=== PATIENT | male | born 1985 | race Two or more races ===

== ENCOUNTER → 2024-09-17 | Outpatient (CLI) | payer MEDICAID, SELFPAY ==
--- NOTE | 2024-09-17 08:45 | XR_ITS ---
Examination: Diagnostic digital mammography, bilateral Computer aided detection 3-D breast Tomosynthesis, bilateral Date and time of exam: September 17, 2024 0853 hours INDICATIONS: Palpable lumps in the right breast 7:00 position 6 months and left breast 3:00 position 2 months Technique: Nonmagnified MLO, CC views of the breasts to been obtained, reconstructed from 3-D Tomosynthesis images. R2 computer aided detection program utilized for evaluation of suspicious masses and/or abnormal calcifications. 3-D Tomosynthesis images obtained. Findings: The breasts are heterogeneously dense, which may obscure small masses Benign calcifications No definite suspicious masses noted Impression: BI-RADS Category 0: Incomplete: Need additional imaging evaluation Given the patient's presentation recommend bilateral breast sonography follow-up.
== END | disposition home or self-care (01) ==
PROVIDERS: Referring Provider Internal Medicine Nephrology; Visit Provider Internal Medicine Nephrology
DX: R92.8 Other abnormal and inconclusive findings on diagnostic imaging of breast (principal)
CPT/HCPCS: 77062; 77066; G0279

== ENCOUNTER → 2024-09-26 | Outpatient (CLI) | payer MEDICAID, SELFPAY ==
--- NOTE | 2024-09-26 14:09 | XR_ITS ---
Examination: Breast ultrasound complete, bilateral Date and time of exam: August 27, 2024 1424 hours INDICATIONS: History right breast nodule 7:00 position left breast nodule 3:00 position Technique: Real-time grayscale ultrasonographic imaging bilateral breasts, including all 4 quadrants as well as nipple retroareolar and axillary regions. Findings: Sonographic images right breast 9:00 retroareolar probable glandular tissue 7.5 x 1.9 x 5.8 cm Sonographic images left breast 3:00 retroareolar probable glandular tissue 7.9 x 1.6 x 5.9 cm IMPRESSION: BI-RADS Category 3: Probably benign findings Recommend this patient return for 3 month follow-up bilateral breast sonography
== END | disposition home or self-care (01) ==
PROVIDERS: PCP Internal Medicine Nephrology; Referring Provider Internal Medicine Nephrology; Visit Provider Internal Medicine Nephrology
DX: N61.23 Granulomatous mastitis, bilateral breast (principal)
CPT/HCPCS: 76641

== ENCOUNTER → 2024-10-24 | Outpatient (CLI) | payer MEDICAID, SELFPAY ==
--- NOTE | 2024-10-24 10:45 | XR_ITS ---
Examination: PA lateral chest 2 views TECHNIQUE: Upright PA lateral chest 2 views Exam date and time: October 24, 2024 1118 hours Comparison June 07, 2018 INDICATIONS: Status post port placement 3 days ago. FINDINGS: Normal heart size Left subclavian Port-A-Cath tip is poorly visualized Right internal jugular dialysis catheter SVC Normal heart size Lungs are clear IMPRESSION: Suggest follow-up more coned to chest film to better assess tip of the Port-A-Cath
== END | disposition home or self-care (01) ==
PROVIDERS: PCP Internal Medicine; Referring Provider Internal Medicine Nephrology; Visit Provider Internal Medicine Nephrology
DX: Z45.2 Encounter for adjustment and management of vascular access device (principal); N18.5 Chronic kidney disease, stage 5
CPT/HCPCS: 71046

== ENCOUNTER 2024-11-18 08:00 | Day surgery (SDC) | payer MEDICAID, SELFPAY ==
--- NOTE | 2024-11-13 07:00 | EKG_ITS ---
[facility] Test Date: 2024-11-13 Pat Name: JOSE PALOMINO Department: Room: - Gender: Male [employer]: JENARO : 1985 Requested By: Demetrio Wilhelm Order Number: [id number] Reading MD: Demetrio Wilhelm Measurements Intervals [place] Rate: 95 P: 37 NM: 186 QRS: -14 QRSD: 104 T: 89 QT: 363 QTc: 458 Interpretive Statements SINUS RHYTHM INDETERMINATE AXIS MINIMAL ST DEPRESSION No previous ECG available for comparison /store/S0/[id number].pdf
[2024-11-13 09:15] VITALS: BMI 37.4
[2024-11-13 10:09] LABS: Basophils # (Auto) 0.1 Thou/mm3 (0.0-0.2); Basophils % (Auto) 1 % (0-2.5); Eosinophils # (Auto) 0.4 Thou/mm3 (0.0-0.5); Eosinophils % (Auto) 4 % (0-10); Hematocrit 31.5 % (41.0-53.0); Hemoglobin 10.1 g/dL (13.5-16.0); Immature Granulocytes % (Auto) 1 % (0-0); Immature Granulocytes Auto 0.05 Thou/mm3 (0.00-0.00); Lymphocytes # (Auto) 1.7 Thou/mm3 (1.0-4.8); Lymphocytes % (Auto) 20 % (10-50); Mean Corpuscular HGB Conc 32.1 g/dl (31.0-37.0); Mean Corpuscular Hemoglobin 29.6 pg (25.0-35.0); Mean Corpuscular Volume 92 fL (80-100); Monocytes # (Auto) 0.7 Thou/mm3 (0.0-0.8); Monocytes % (Auto) 9 % (0-12); Neutrophils # (Auto) 5.5 Thou/mm3 (1.8-7.7); Neutrophils % (Auto) 66 % (37-80); Nucleated Red Blood Cell % 0 /100 WBC (0); Platelet Count 180 Thou/mm3 (140-440); RDW Standard Deviation 40.8 fL (35.1-43.9); Red Blood Count 3.41 Miln/mm3 (4.50-5.90); White Blood Count 8.4 Thou/mm3 (3.8-10.6)
[2024-11-13 10:22] LABS: Prothrombin Time 11.2 Seconds (9.0-12.2)
[2024-11-13 10:31] LABS: Alanine Aminotransferase 17 U/L (10-49); Albumin, Serum 3.3 gm/dL (3.5-5.0); Albumin/Globulin Ratio 0.9 (1.2-2.2); Alkaline Phosphatase 68 U/L (46-116); Anion Gap 6 (7-16); Aspartate Amino Transferase 23 U/L (0-34); BUN/Creatinine Ratio 4 Ratio (12-20); Bilirubin,Total 0.2 mg/dL (0.3-1.2); Blood Urea Nitrogen 23 mg/dL (9-23); Calcium 8.6 mg/dL (8.3-10.6); Calcium (Corrected) 9.2 mg/dL (8.5-10.1); Carbon Dioxide 31.6 mMol/L (20.0-31.0); Chloride 102 mMol/L (98-107); Creatinine (Component) 5.7 mg/dL (0.6-1.3); Globulin 3.5 gm/dL (2.3-3.5); Glucose 109 mg/dL (74-106); Osmolality,Calculated 284 (275-295); Potassium 4.6 mMol/L (3.4-5.1); Sodium 140 mMol/L (136-145); Total Protein 6.8 gm/dL (5.7-8.2); eGFR 12 See Note
[2024-11-18] VITALS (7 sets, daily range): BP systolic 137–161; BP diastolic 84–102; PULSE 81–89; RESP 13–16; TEMP 36.6–37.2; O2SAT 96–99; BMI 36.6
[2024-11-18] MEDS: SODIUM CHLORIDE 0.9% 500 ML 500 ML 20 ML IV (09:06)
[2024-11-18 09:27] LABS: Potassium 4.3 mMol/L (3.4-5.1)
--- NOTE | 2024-11-18 11:39 | PD.SUROPNT ---
Date of Procedure 11/18/24 Pre Op Diagnosis Bilateral breast mass Post Op Diagnosis Bilateral breast mass Procedure Bilateral breast lumpectomies Findings Patient was noted to have approximately 4 cm bilateral hard breast masses lateral and slightly lower to the areolar complex Procedure Description Patient brought into the operating room in supine position. After administration of general tracheal anesthesia, patient's bilateral breasts were prepped and draped in standard surgical manner. The procedure started on the patient's right side. After administration of local anesthesia an approximately 4 cm semicircular incision was made on the lateral aspect of the areolar complex. Circumferential flaps were raised. Underlying breast mass was circumferentially dissected out surrounding tissue and underlying breast and removed. The mass was approximately 4 cm in diameter and it was hard in texture. Wound was washed and irrigated and hemostasis achieved using electrocautery. Deep breast tissue reapproximated with interrupted sutures using 2-0 Vicryl. Subcutaneous tissue closed with interrupted sutures using 3-0 Vicryl and incision was closed with 4-0 Monocryl in subcuticular fashion. Dermabond and pressure sterile dressings applied. I turned my attention to patient's left side. He was found to have an approximately 4 cm hard mass immediately lateral and slightly lower to the areolar complex. Procedure was performed in similar fashion. Patient tolerated procedure well. He was extubated, breathing spontaneously and without difficulty and was transferred to postanesthesia care in stable condition. Instruments, needles and sponge counts were reported to be correct x 2. Anesthesia GETA and local Pathology / specimen Other (Right breast mass. Left breast mass.) Estimated Blood Loss 10 Condition Stable Disposition PACU Surgeon Demetrio Wilhelm MD Surgical Staff Operation Date: 11/18/24 11:45 <No data on this case meets the specified criteria>
--- NOTE | 2024-11-18 11:50 | SUR.PHASEI ---
pt arrived to PACU via gurney awake, alert, able to follow commands, breathing unlabored, dressing to bilateral upper chest clean, dry, and intact, report from [facility] ROSS and Dr Torres
--- NOTE | 2024-11-18 12:45 | SUR.PHASEII ---
pt awake, alert, able to follow commands, breathing unlabored, dressing to bilateral upper chest clean, dry, and intact, pt able to dress self and ambulate to wheelchair with steady gait, discharge instructions given with spouse present, pt discharged via wheelchair with all belongings and copies of discharge paperwork.
== END 2024-11-18 12:45 | disposition home or self-care (01) ==
PROVIDERS: Anesthesiology; PCP Internal Medicine; Referring Provider Surgery; Visit Provider Surgery
PROC: (CPT 19301; principal; 2024-11-18 11:30)
DX: N62 Hypertrophy of breast (principal); Z01.810 Encounter for preprocedural cardiovascular examination
CPT/HCPCS: 19301; 36415; 80053; 84132; 85025; 85610; 93005; A4217; A4649; J0690; J2250; J2405; J2704; J2765; J3010; J3490; J7040

== ENCOUNTER 2024-11-23 15:58 | Emergency (ER) | payer MEDICAID, SELFPAY ==
[2024-11-23 16:00] VITALS: BMI 36.7
[2024-11-23 16:09] VITALS: BP 166/85; PULSE 98; RESP 18; TEMP 37.1; O2SAT 95
--- NOTE | 2024-11-23 16:22 | XR_ITS ---
Examination: CT brain head without contrast. 2-D sagittal coronal reconstructions Date and time of exam:November 23, 2024 1657 hrs. Indications: Onset facial droop and facial swelling beginning 2 days ago CTDI: vol (mGy):54.3 DLP: (mGycm):1195 Technique: Multiple CT axial sections of the brain have been obtained, 5 mm slice thickness. Contrast has not been administered. 2-D sagittal, coronal reconstructions have been obtained Low dose protocols were performed. One or more of the following dose reduction techniques were used; automated exposure control, adjustment of the mA and/or KV according to patient size, use of iterative reconstruction technique. Findings: No significant ventricular enlargement. Intra-axial or extra-axial hemorrhage density is not seen. No mass effect or midline shift Basal cisterns are not remarkable. Fourth ventricle is midline. Cranial vault intact. Impression: Negative for acute hemorrhage, mass effect or midline shift As clinically warranted, brain MRI follow-up would best assess for demyelinating disease, acute ischemic change
--- NOTE | 2024-11-23 16:22 | PD.EDRME ---
Rapid Medical Screening Exam E Arrival date/time: 11/23/24 15:58 This is a 39-year-old male that is brought in by with complaints of right facial droop. Symptoms started yesterday. Patient thought it was secondary to popping a pimple right next to his right ear. Patient states he had some mild swelling to the right side of his face. Patient reports that he did noticed the facial droop but did not want to come to the hospital. Patient has no focal weakness.. Patient reports history of high blood pressure diabetes and hyperlipidemia. Patient is on dialysis currently. Patient not able to wrinkle right side of forehead not able to raise his right eyebrow and not able to close his right eye. Patient complains of a headache that started yesterday. Patient denies any other symptoms. I have greeted and performed a focused initial assessment of this patient. Initial appropriate labs ordered at this time. A comprehensive ED assessment and evaluation of the patient and analysis of all test and completion of medical decision making process will be conducted by additional ED provider. Chief Complaint: General Adult/Misc Complain Time Seen by Provider: 11/23/24 16:09 Vital signs: Vital Signs Temperature 98.7 F 11/23/24 16:09 Pulse Rate 98 11/23/24 16:09 Respiratory Rate 18 11/23/24 16:09 Blood Pressure 166/85 H 11/23/24 16:09 Pulse Oximetry (%) 95 11/23/24 16:09 Oxygen Delivery Method Room Air 11/23/24 16:09
[2024-11-23 16:59] LABS: Basophils # (Auto) 0.1 Thou/mm3 (0.0-0.2); Basophils % (Auto) 1 % (0-2.5); Eosinophils # (Auto) 0.5 Thou/mm3 (0.0-0.5); Eosinophils % (Auto) 6 % (0-10); Hematocrit 30.3 % (41.0-53.0); Hemoglobin 10.1 g/dL (13.5-16.0); Immature Granulocytes % (Auto) 1 % (0-0); Immature Granulocytes Auto 0.07 Thou/mm3 (0.00-0.00); Lymphocytes # (Auto) 1.7 Thou/mm3 (1.0-4.8); Lymphocytes % (Auto) 21 % (10-50); Mean Corpuscular HGB Conc 33.3 g/dl (31.0-37.0); Mean Corpuscular Hemoglobin 29.6 pg (25.0-35.0); Mean Corpuscular Volume 89 fL (80-100); Monocytes # (Auto) 0.7 Thou/mm3 (0.0-0.8); Monocytes % (Auto) 8 % (0-12); Neutrophils # (Auto) 5.3 Thou/mm3 (1.8-7.7); Neutrophils % (Auto) 64 % (37-80); Nucleated Red Blood Cell % 0 /100 WBC (0); Platelet Count 217 Thou/mm3 (140-440); RDW Standard Deviation 39.4 fL (35.1-43.9); Red Blood Count 3.41 Miln/mm3 (4.50-5.90); White Blood Count 8.2 Thou/mm3 (3.8-10.6)
[2024-11-23 17:37] LABS: Alanine Aminotransferase < 7 U/L (10-49); Albumin, Serum 3.3 gm/dL (3.5-5.0); Albumin/Globulin Ratio 0.8 (1.2-2.2); Alkaline Phosphatase 69 U/L (46-116); Anion Gap 7 (7-16); Aspartate Amino Transferase 22 U/L (0-34); BUN/Creatinine Ratio 5 Ratio (12-20); Bilirubin,Total < 0.2 mg/dL (0.3-1.2); Blood Urea Nitrogen 47 mg/dL (9-23); Calcium (Corrected) 9.6 mg/dL (8.5-10.1); Carbon Dioxide 30.7 mMol/L (20.0-31.0); Chloride 100 mMol/L (98-107); Creatinine (Component) 8.7 mg/dL (0.6-1.3); Estimated Creatinine Clearance 17.5 mL/min (>60); Glucose 87 mg/dL (74-106); Osmolality,Calculated 286 (275-295); Potassium 4.8 mMol/L (3.4-5.1); Sodium 138 mMol/L (136-145); Total Protein 7.3 gm/dL (5.7-8.2); eGFR 7 See Note
--- NOTE | 2024-11-23 19:29 | PD.EDADULT ---
ED General RME/HPI General Chief complaint: General Adult/Misc Complain Stated complaint: FACIAL SWELLING X2 DAYS Time Seen by Provider: 11/23/24 16:09 Source: patient Arrival date/time: 11/23/24 15:58 Mode of arrival: ambulatory Limitations: no limitations RME / HPI RME / HPI narrative: 11/23/24 15:58 This is a 39-year-old male that is brought in by with complaints of right facial droop. Symptoms started yesterday. Patient thought it was secondary to popping a pimple right next to his right ear. Patient states he had some mild swelling to the right side of his face. Patient reports that he did noticed the facial droop but did not want to come to the hospital. Patient has no focal weakness.. Patient reports history of high blood pressure diabetes and hyperlipidemia. Patient is on dialysis currently. Patient not able to wrinkle right side of forehead not able to raise his right eyebrow and not able to close his right eye. Patient complains of a headache that started yesterday. Patient denies any other symptoms. I have greeted and performed a focused initial assessment of this patient. Initial appropriate labs ordered at this time. A comprehensive ED assessment and evaluation of the patient and analysis of all test and completion of medical decision making process will be conducted by additional ED provider. Dr. Akhtar?s Main ED Evaluation: 39-year-old male presents to the emergency department ambulatory, accompanied by his , for evaluation of right-sided facial swelling. The patient expresses concern about a possible stroke and seeks further assessment. He reports that the facial swelling began yesterday and has been persistent without significant progression or improvement. The patient denies any associated neurological symptoms, including numbness, tingling, weakness, or difficulty with speech. 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 He denies any additional medical complaints such as headache, dizziness, vision changes, or focal weakness. Of note, the patient recently began dialysis one month ago and wonders if the facial swelling may be related to his renal treatment. However, he has not noticed similar swelling in other areas of his body. He has known history of hypertension, diabetes, and cardiovascular disease. Related Data Home Medications ?Medication ?Instructions ?Recorded ?Confirmed lisinopril 20 1 tab PO BID 06/07/18 11/18/24 mg-hydrochlorothiazide 25 mg tablet amlodipine 10 mg tablet 10 mg PO DAILY 11/13/24 11/18/24 bumetanide 2 mg tablet 2 mg PO TID 11/13/24 11/18/24 carvedilol 25 mg tablet 25 mg PO Q12H 11/13/24 11/18/24 insulin glargine 100 unit/mL (3 8 unit subcut QAM 11/13/24 11/18/24 mL) subcutaneous pen (Lantus Solostar U-100 Insulin) lovastatin 20 mg tablet 20 mg PO DAILY 11/13/24 11/18/24 metolazone 10 mg tablet 10 mg PO Q12H 11/13/24 11/18/24 semaglutide 1 mg/dose (4 mg/3 mL) 1 mg subcut QWEEK 11/13/24 11/13/24 subcutaneous pen injector (Ozempic) sevelamer carbonate 800 mg tablet 800 mg PO TID 11/13/24 11/18/24 Previous Rx's ?Medication ?Instructions ?Recorded docusate sodium 100 mg capsule 100 mg PO BID #40 caps 11/18/24 (Colace) hydrocodone 5 mg-acetaminophen 325 1 tab PO Q6H PRN pain (scale score 11/18/24 mg tablet 7-10) #20 tabs carboxymethylcellulose sodium 1 % 1 drp ophthalmic (eye) TID Right 11/23/24 eye drops (Artificial Tears eye #15 mL (carboxymethylcellulose)) prednisone 50 mg tablet 50 mg PO QDAY butt's palsy 7 days 11/23/24 #7 tabs valacyclovir 1 gram tablet 1,000 mg PO BID butt's palsy 7 11/23/24 days #14 tabs Allergies Allergy/AdvReac Type Severity Reaction Status Date / Time No Known Allergies Allergy Verified 11/23/24 15:59 Review of Systems Review of Systems Systems Reviewed: All systems reviewed, normal except as documented Past Medical History Past Medical History NEUROLOGIC: Negative Neurological Disorders or Seizures CARDIAC: Positive Cardiac Disorders, Hypercholesterolemia and Hypertension; Negative Congestive Heart Failure or Varicose Veins RESPIRATORY: Negative Chronic Obstructive Pulmonary Disease (COPD) GASTROINTESTINAL: Negative Gastrointestinal Disorders or Hepatitis GENITOURINARY: Positive Genitourinary Disorders, Renal Disease and Dialysis (MWF) REPRODUCTIVE: Positive Testicular Cancer (20 yrs ago) MUSCULOSKELETAL: Positive Musculoskeletal Disorders and Fractures (Left wrist has metal) ENDOCRINE: Positive Endocrine Disorders and Diabetes Mellitus Type 2; Negative Diabetes Mellitus Type 1 HEMATOLOGIC: Negative Blood Disorders OTHER HISTORY: Positive Hospitalization (surgery), Chemotherapy (20 yrs ago), Cancer and Testicular Cancer (20 yrs ago); Negative Autoimmune Disease, Shingles, Blood Transfusions, Blood Transfusion Reaction or Anesthesia Reactions Family History FAMILY HISTORY: Positive Family Surgery; Negative Family Psychiatric Problems, Family Respiratory Disorders, Family Cardiac Disorders, Family Gastrointestinal Problems, Family Cancer or Family Anesthesia Reaction Surgical History SURGICAL: Positive Open Reduction Internal Fixation (Left wrist has metal) Social History SMOKING STATUS: Former smoker ED Exam Narrative Physical exam: GENERAL APPEARANCE: alert and oriented x 4, well-developed, well-nourished, no acute distress VITALS: All vitals were reviewed and the pulse ox is 95% on room air, which is normal according to my interpretation. HEENT: Normocephalic, atraumatic; pupils equal, round, reactive to light; EOMI; mucous membranes pink, moist; oropharynx clear. Inability to raise the eyebrow or wrinkle the forehead on the right side. NECK: Supple LUNGS: CTABL; no wheezes, no rales, no rhonchi HEART: Regular rate, regular rhythm; normal S1, S2; no murmurs ABDOMEN: non distended; normal BS; soft, no tenderness, no guarding, no rebound; no masses, no organomegaly, no hernia BACK: no CVA tenderness EXTREMITIES: atraumatic; no edema NEUROLOGIC: awake; alert and oriented x4; cranial nerves II-XII grossly intact; no focal sensory or motor deficits. Normal limb strength, coordination, and reflexes. Cerebellar exam: no intention tremor, staccato speech, dysmetria or dysdiadochokinesia PSYCHIATRIC: appropriate mood and affect SKIN: warm, dry, normal color; no rashes General Limitations: Present no limitations Course Quality Measures none Orders Category Date Time Status CT head/brain wo con Stat Exams 11/23/24 16:22 Completed CBC Stat Lab 11/23/24 16:52 Completed Comprehensive Metabolic Panel Stat Lab 11/23/24 16:52 Completed PT [Prothrombin Time with INR] Stat Lab 11/23/24 16:52 Completed Vital Signs Vital signs: Vital Signs Temperature 98.7 F 11/23/24 16:09 Pulse Rate 98 11/23/24 16:09 Respiratory Rate 18 11/23/24 16:09 Blood Pressure 166/85 H 11/23/24 16:09 Pulse Oximetry (%) 95 11/23/24 16:09 Oxygen Delivery Method Room Air 11/23/24 16:09 [facility] Patient data External records reviewed:: [facility] previous records Clinical information provided by:: patient and spouse Social determinants that could affect healthcare access:: none Patient has the following chronic illnesses:: see PMH How is presenting disease/condition affected by chronic disease/condition?: uneffected by Evaluation data The following diagnostics were reviewed and interpreted by me:: lab results and radiology exam(s) Lab and/or radiology exams considered but not ordered:: na Interpretation Summary: I personally reviewed the radiology data and agree with the radiologist's interpretation. Examination: CT brain head without contrast. Date and time of exam:November 23, 2024 1657 hrs. Indications: Onset facial droop and facial swelling beginning 2 days ago Findings: No significant ventricular enlargement. Intra-axial or extra-axial hemorrhage density is not seen. No mass effect or midline shift Basal cisterns are not remarkable. Fourth ventricle is midline. Cranial vault intact. Impression: Negative for acute hemorrhage, mass effect or midline shift As clinically warranted, brain MRI follow-up would best assess for demyelinating disease, acute ischemic change Medications Medications considered but not ordered:: na Medication administrations:: as above, if any Consultations Consultation(s) initiated? (list below): No Diagnosis Differential Diagnosis ED Complaint MDM: see narrative Most likely diagnosis given after review of the tests above:: [place] Palsy, Right facial paralysis with forehead involvement Admission Indicated Admission indicated?: not indicated Explain why admission is indicated or not indicated:: No significant findings Admission Request Was there a request for admission?: No Disposition Plan Disposition Plan: Discharge Discharge Attestation Discharge Attestation: The patient and all family members were given an opportunity to ask questions and understood the discharge instructions. Discharge instructions specifically effects, indications for sooner follow up or return to the emergency department, and the expected course of current diagnosis. Patient condition: Stable Medical Decision Making MDM Narrative MDM Narrative: The differential diagnosis includes ischemic cerebrovascular accident (CVA), hemorrhagic CVA, allergic reaction, contusion, cellulitis, and Butt?s palsy. Scribe Attestation: I, Jeevan Bautista, am scribing for and in the presence of Dr. Akhtar. Provider Notation: Although this document has been carefully reviewed, there may still be some phonetic and other typographical errors. These errors are purely grammatical due to imperfections in the software program and should not be construed in any way to compromise the substance of the patient's medical care during this visit. Differential Diagnosis Differential Diagnosis: see narrative Medical Records Medical records reviewed: Yes I reviewed the patient's medical records. Lab Data Lab results reviewed: Yes I reviewed the patient's lab results. 11/23/24 16:52 11/23/24 16:52 Labs: Lab Results 11/23/24 Range/Units 16:52 WBC 8.2 (3.8-10.6) Thou/mm3 RBC 3.41 L (4.50-5.90) Miln/mm3 Hgb 10.1 L (13.5-16.0) g/dL Hct 30.3 L (41.0-53.0) % MCV 89 (80-100) fL MCH 29.6 (25.0-35.0) pg MCHC 33.3 (31.0-37.0) g/dl RDW Std Deviation 39.4 (35.1-43.9) fL Plt Count 217 D (140-440) Thou/mm3 Neut % (Auto) 64 (37-80) % Lymph % (Auto) 21 (10-50) % [place] % (Auto) 8 (0-12) % Eos % (Auto) 6 (0-10) % Baso % (Auto) 1 (0-2.5) % Neut # (Auto) 5.3 (1.8-7.7) Thou/mm3 Lymph # (Auto) 1.7 (1.0-4.8) Thou/mm3 [place] # (Auto) 0.7 (0.0-0.8) Thou/mm3 Eos # (Auto) 0.5 (0.0-0.5) Thou/mm3 Baso # (Auto) 0.1 (0.0-0.2) Thou/mm3 Immature Gran # (Auto) 0.07 H (0.00-0.00) Thou/mm3 Absolute Nucleated RBC 0.00 (0.00-0.00) Thou/mm3 Immature Gran % 1 H (0-0) % Nucleated RBC % 0 (0) /100 WBC PT 11.0 (9.0-12.2) Seconds INR 1.0 (0.9-1.3) Sodium 138 (136-145) mMol/L Potassium 4.8 (3.4-5.1) mMol/L Chloride 100 (98-107) mMol/L Carbon Dioxide 30.7 (20.0-31.0) mMol/L Anion Gap 7 (7-16) BUN 47 H (9-23) mg/dL Creatinine 8.7 H* (0.6-1.3) mg/dL Estim Creat Clear Calc 17.5 L (>60) mL/min eGFR 7 L* (60 - ) See Note BUN/Creatinine Ratio 5 L (12-20) Ratio Glucose 87 (74-106) mg/dL Calculated Osmolality 286 (275-295) Calcium 9.0 (8.3-10.6) mg/dL Corrected Calcium 9.6 (8.5-10.1) mg/dL Total Bilirubin < 0.2 L (0.3-1.2) mg/dL AST 22 (0-34) U/L ALT < 7 L (10-49) U/L Alkaline Phosphatase 69 (46-116) U/L Total Protein 7.3 (5.7-8.2) gm/dL Albumin 3.3 L (3.5-5.0) gm/dL Globulin 4.0 H (2.3-3.5) gm/dL Albumin/Globulin Ratio 0.8 L (1.2-2.2) Radiology Data Radiology results reviewed: Yes I reviewed the patient's radiology results. Discharge Plan Plan Patient Disposition: HOME (Self Care) Disposition Comment: Stable for discharge Patient condition on transfer: Stable Prescriptions/Referrals Prescriptions/Med Rec: New prednisone 50 mg tablet 50 mg PO QDAY 7 Days Qty: 7 0RF valacyclovir 1 gram tablet 1,000 mg PO BID 7 Days Qty: 14 0RF Artificial Tears (cmc) 1 % drops 1 drp ophthalmic (eye) TID Qty: 15 0RF No Action lisinopril-hydrochlorothiazide 20-25 mg Tablet 1 tab PO BID carvedilol 25 mg tablet 25 mg PO Q12H Patient Comments: TAKE ONE AND A HALF TABLETS BY ORAL ROUTE 2 TIMES EVERY DAY WITH FOOD bumetanide 2 mg tablet 2 mg PO TID Patient Comments: TAKE 1 TABLET BY MOUTH THREE TIMES A DAY NEEDED FOR 30 DAYS amlodipine 10 mg tablet 10 mg PO DAILY Patient Comments: TAKE 1 TABLET BY MOUTH EVERY DAY lovastatin 20 mg tablet 20 mg PO DAILY Patient Comments: TAKE 1 TABLET BY MOUTH EVERY DAY EVENING MEAL metolazone 10 mg tablet 10 mg PO Q12H Patient Comments: TAKE 1 TABLET BY MOUTH TWICE A DAY NEEDED FOR 30 DAYS insulin glargine [Lantus Solostar U-100 Insulin] 100 unit/mL (3 mL) insulin pen 8 unit SUBCUT QAM sevelamer carbonate 800 mg tablet 800 mg PO TID Patient Comments: TAKE 2 TABLETS BY MOUTH WITH MEALS 3 TIMES A DAY. Ozempic 1 mg/dose (4 mg/3 mL) pen injector 1 mg SUBCUT QWEEK Patient Comments: INJECT 1 MG SUBCUTANEOUSLY WEEKLY docusate sodium [Colace] 100 mg capsule 100 mg PO BID Qty: 40 0RF hydrocodone-acetaminophen 5-325 mg tablet 1 tab PO Q6H MDD 4 PRN (Reason: pain (scale score 7-10)) Qty: 20 0RF Referrals: Anabella Riley MD [Primary Care Provider] - In 1 week Problem List Clinical Impression: Butt palsy, Facial paralysis on right side, Facial paralysis with forehead involvement Patient/Caregiver Discharge Instructions Discharge Activity: activity as tolerated Education Materials: ED Butt's Palsy Additional Instructions: Please return to the emergency department for any worsening or any further medical problems. Otherwise you should follow-up with your primary care doctor within the next several days. You have several prescriptions waiting for you at the pharmacy. One of them is a steroid called prednisone. You take 1 tab every day until they are gone. Another medicine is called valacyclovir. This is an antiviral medicine and some doctors think that this helps with Butt's palsy. Take these until they are completely gone as well. Print Language: Ukrainian Stand Alone Forms: Melissa Award Info., Patient Portal Info Letter
[2024-11-23 19:47] VITALS: RESP 18
== END 2024-11-23 19:48 | disposition home or self-care (01) ==
PROVIDERS: Nurse Practitioner Family; Emergency Provider Emergency Medicine; PCP Internal Medicine
DX: G51.0 Bell's palsy (principal); E11.9 Type 2 diabetes mellitus without complications; E78.5 Hyperlipidemia, unspecified; Z99.2 Dependence on renal dialysis; I10 Essential (primary) hypertension
CPT/HCPCS: 36415; 70450; 80053; 85025; 85610; 99284